=== PATIENT | male | born 1990 | race Caucasian/White ===

== ENCOUNTER 2017-10-27 19:24 | Emergency (ER) | payer SELFPAY ==
[~2017-10-27] VITALS: Ht 182.9 cm; Wt 100.0 kg
[~2017-10-27 19:24] MED LIST: BENZ100 PO; ZITH250T PO
[2017-10-27 20:07] VITALS: BP 151/65; PULSE 83; RESP 16; TEMP 98.6; O2SAT 97
[2017-10-27] MEDS ORDERED: IBUP1TAB7 PO (20:21)
--- NOTE | 2017-10-27 20:21 | PD ---
HPI Chief Complaint: Injury Time Seen by Provider: 20:13 Travel History International Travel<30 days: No Contact w/Intl Traveler<30days: No Traveled to known affect area: No History of Present Illness HPI 27-year-old male presents to the emergency department for evaluation of left ankle pain and swelling. Patient reports history of torn ligaments. Denies a traumatic injury. No fevers or chills. Has no medical problems and takes no prescribed medications. Ambulation worsens the pain. Keeping the ankle still will help alleviate the pain. Current pain is 10/10, aching and throbbing, without radiation. Mild severity peer PFSH Past Medical History Medical History: Denies Significant Hx Influenza Vaccination: No Social History Alcohol Use: No Tobacco Use: No Substance Use: No Allergies-Medications (Allergen,Severity, Reaction): Coded Allergies: No Known Allergies (Unverified Adverse Reaction, Unknown, 10/27/17) Reported Meds & Prescriptions Reported Meds & Active Scripts Active Ibuprofen 800 Mg Tab 800 Mg PO TID PRN Review of Systems Except as stated in HPI: all other systems reviewed are Neg Physical Exam Narrative GENERAL: Well-nourished, well-developed male patient, afebrile. SKIN: Focused skin assessment warm/dry. No erythema or warmth of the left ankle. HEAD: Normocephalic. Atraumatic EYES: No scleral icterus. No injection or drainage. NECK: Supple, trachea midline. No JVD or lymphadenopathy. CARDIOVASCULAR: Regular rate and rhythm without murmurs, gallops, or rubs. Left pedal pulse 2+ RESPIRATORY: Breath sounds equal bilaterally. No accessory muscle use. Lung sounds are clear to auscultation peer GASTROINTESTINAL: Abdomen soft, non-tender, nondistended. MUSCULOSKELETAL: No cyanosis. Patient has mild swelling and tenderness over left lateral ankle. No obvious deformity. He has full sensation distal left lower extremity. BACK: Nontender without obvious deformity. No CVA tenderness. Data Data Last Documented VS Vital Signs Date Time Temp Pulse Resp B/P (MAP) Pulse Ox O2 Delivery O2 Flow Rate FiO2 10/27/17 20:07 98.6 83 16 151/65 (93) 97 Orders Orders Ankle, Complete ([id number]) (10/27/17 ) Ibuprofen (Motrin) (10/27/17 20:30) Splint Or Brace Apply/Monitor (10/27/17 20:45) Crutches (10/27/17 20:45) MDM Medical Decision Making Medical Screen Exam Complete: Yes Emergency Medical Condition: Yes Medical Record Reviewed: Yes Differential Diagnosis Ankle sprain versus fracture versus dislocation Narrative Course 27-year-old male presents to the emergency department for evaluation of left ankle pain. X-ray left ankle is ordered and pending. Patient is given ibuprofen 800 mg p.o. I reviewed the x-ray of the left ankle with my attending physician, Dr. Melara, who agrees there is no acute fracture. Patient is given William bandage and crutches. Patient will be discharged prescription for ibuprofen. He is encouraged to elevate, ice, follow-up with primary care physician. The patient was discharged in stable condition with instructions, including return instructions and follow up instructions. Diagnosis Primary Impression: Left ankle sprain Qualified Codes: S93.402A - Sprain of unspecified ligament of left ankle, initial encounter Referrals: Orthopedist call for appointment Patient Instructions: Ankle Sprain (ED), General Instructions Additional Instructions: Wear William bandage and use crutches as needed for support. Take ibuprofen as directed as needed with food for pain. Elevate. Ice for 20 minutes 4-5 times daily. Follow-up with an orthopedist. Return to the emergency department for any acute worsening of symptoms. Med/Other Pt SpecificInfo: Prescription(s) given Scripts Ibuprofen (Ibuprofen) 800 Mg Tab 800 MG PO TID Y for PAIN SCALE 1 TO 10, #21 TAB 0 Refills Prov: Raine Ramirez 10/27/17 Disposition: 01 DISCHARGE HOME Condition: Stable Riane Ramirez October 27, 2017 20:21
[2017-10-27] MEDS ORDERED: IBUPROFEN 800 MG TAB PO ONE (20:30)
--- NOTE | 2017-10-27 21:36 | RADRPT ---
EXAM DATE/TIME: 10/27/2017 20:32 [facility] COMPARISON: No previous studies available for comparison. INDICATIONS : Left ankle pain with no known injury. MEDICAL HISTORY : None. SURGICAL HISTORY : None. ENCOUNTER: Initial ACUITY: 1 week PAIN SCORE: 10/10 LOCATION: Left lateral ankle. FINDINGS: Three view exam was performed of the left ankle. The bony structures are in normal alignment. No ev idence of fracture, dislocation, or soft tissue swelling. The ankle mortise is intact. No radiopaqu e foreign bodies are seen. Bony mineralization is normal. CONCLUSION: No acute disease. Saud Cole MD on October 27, 2017 at 21:34 Board Certified Radiologist. This report was verified electronically.
== END 2017-10-27 21:04 | disposition home or self-care (01) ==
LOC: NEPK 19:24
DX: S93.402A Sprain of unspecified ligament of left ankle, initial encounter (principal); X58.XXXA Exposure to other specified factors, initial encounter
CPT/HCPCS: 73610; 99283; E0113

== ENCOUNTER 2017-10-28 18:25 | Emergency (ER) | END 2017-10-28 20:40 | disposition home or self-care (01) | DX: S61.412A Laceration without foreign body of left hand, initial encounter (principal); M79.642 Pain in left hand; W25.XXXA Contact with sharp glass, initial encounter ==

== ENCOUNTER 2017-11-05 21:05 | Emergency (ER) | payer SELFPAY ==
[~2017-11-05] VITALS: Ht 182.9 cm; Wt 105.0 kg
[2017-11-05 21:28] VITALS: BP 133/73; PULSE 93; RESP 18; TEMP 98.9; O2SAT 98
== END 2017-11-05 22:39 | disposition left against medical advice (07) ==
LOC: NED 21:05
DX: Z03.89 Encounter for observation for other suspected diseases and conditions ruled out (principal)
CPT/HCPCS: 99281

== ENCOUNTER 2017-11-06 16:03 | Emergency (ER) | payer SELFPAY ==
[~2017-11-06] VITALS: Ht 182.9 cm; Wt 105.0 kg
[2017-11-06 16:09] VITALS: BP 140/64; PULSE 87; RESP 19; TEMP 98.6; O2SAT 99
--- NOTE | 2017-11-06 17:21 | PD ---
HPI Chief Complaint: Wound/Suture/Staple Re-Check Time Seen by Provider: 17:03 Travel History International Travel<30 days: No Contact w/Intl Traveler<30days: No Traveled to known affect area: No History of Present Illness HPI Patient is a 27-year-old male presenting to the emergency department to have his stitches removed. Patient states he them placed 9 days ago. He denies any pain, warmth, redness, drainage. Patient has no other complaints at this time. [facility] Past Medical History Medical History: Denies Significant Hx Diminished Hearing: No Social History Alcohol Use: Yes (occ) Tobacco Use: No Substance Use: No Allergies-Medications (Allergen,Severity, Reaction): Coded Allergies: No Known Allergies (Unverified Adverse Reaction, Unknown, 11/06/17) Reported Meds & Prescriptions Reported Meds & Active Scripts Active No Active Prescriptions or Reported Medications Review of Systems Except as stated in HPI: all other systems reviewed are Neg Physical Exam Narrative GENERAL: Well-developed, well-nourished, alert male. Presenting in no acute distress. SKIN: Warm and dry. 3 intact sutures over the left fifth MCP joint. No warmth , redness or exudate noted. Sutures are well approximated. HEAD: Normocephalic. EYES: No scleral icterus. No injection or drainage. NECK: Supple, trachea midline. No JVD or lymphadenopathy. CARDIOVASCULAR: Regular rate and rhythm without murmurs, gallops, or rubs. RESPIRATORY: Breath sounds equal bilaterally. No accessory muscle use. GASTROINTESTINAL: Abdomen soft, non-tender, nondistended. MUSCULOSKELETAL: No cyanosis, or edema. BACK: Nontender without obvious deformity. No CVA tenderness. Data Data Last Documented VS Vital Signs Date Time Temp Pulse Resp B/P (MAP) Pulse Ox O2 Delivery O2 Flow Rate FiO2 11/06/17 16:09 98.6 87 19 140/64 (89) 99 Orders Orders Ed Discharge Order (11/06/17 17:17) [facility] Medical Decision Making Medical Screen Exam Complete: Yes Emergency Medical Condition: Yes Interpretation(s) Vital Signs Date Time Temp Pulse Resp B/P (MAP) Pulse Ox O2 Delivery O2 Flow Rate FiO2 11/06/17 16:09 98.6 87 19 140/64 (89) 99 Differential Diagnosis Cellulitis versus abscess versus normal wound healing versus other Narrative Course Patient presented to have his stitches removed, no sign of infection noted. 3 intact sutures removed without difficulty. Patient tolerated well. Patient stable for discharge. Diagnosis Primary Impression: Visit for suture removal Referrals: Primary Care Physician Patient Instructions: General Instructions Additional Instructions: Follow-up with your primary doctor Return to emergency department for any new or worsening symptoms Med/Other Pt SpecificInfo: No Change to Meds Scripts No Active Prescriptions or Reported Meds Disposition: 01 DISCHARGE HOME Condition: Stable Chelsie Zamudio November 06, 2017 17:21
== END 2017-11-06 17:33 | disposition home or self-care (01) ==
LOC: NEPD 16:03
DX: Z48.02 Encounter for removal of sutures (principal)
CPT/HCPCS: 99281